=== PATIENT | male | born 1945 | race African-American/Black ===

== ENCOUNTER 2017-02-24 11:23 | Emergency (ER) | payer OTHER, MEDICAID ==
[~2017-02-24] VITALS: Ht 175.3 cm; Wt 61.0 kg
[~2017-02-24 11:23] MED LIST: DIAZ2TAB; IBUP-779
[2017-02-24 11:31] VITALS: BP 186/94
[2017-02-24] MEDS ORDERED: UNKNOWN BP MEDS (11:37)
== END 2017-02-24 12:54 | disposition home or self-care (01) ==
LOC: ER 11:25
DX: K13.79 Other lesions of oral mucosa (principal); M54.5 Low back pain; G89.29 Other chronic pain; I10 Essential (primary) hypertension; M19.90 Unspecified osteoarthritis, unspecified site; Z79.899 Other long term (current) drug therapy
CPT/HCPCS: 99283

== ENCOUNTER 2017-05-07 15:57 | Emergency (ER) | payer OTHER, MEDICAID ==
[~2017-05-07] VITALS: Ht 175.3 cm; Wt 63.0 kg
[~2017-05-07 15:57] MED LIST changes: +UNKNOWN BP MEDS
[2017-05-07] MEDS ORDERED: ACETAMINOPHEN WITH CODEINE 300/30MG TABLET PO ONE (17:00)
[2017-05-07] MEDS ORDERED: AMLODIPINE 5MG TABLET PO ONE (17:15)
[2017-05-07 17:29] LABS: BASOPHILS % 1.1 % (0.0-2.0); EOSINOPHILS % 4.8 % (0.0-5.0); HEMATOCRIT. 36.8 % (42.0-52.0); HEMOGLOBIN. 11.8 g/dL (14.0-18.0); LYMPHOCYTES % 23.6 % (20.0-50.0); MEAN CORPUSCULAR HEMOGLOBIN 23.6 pg (28.0-32.0); MEAN CORPUSCULAR VOLUME 73.8 fL (80.0-94.0); MEAN PLATELET VOLUME 7.7 fl (7.4-10.4); MONOCYTES % 8.3 % (2.0-8.0); NEUTROPHILS % 62.2 % (40.0-76.0); PLATELET 289 x1000/uL (130-400); RED BLOOD CELL COUNT 4.98 mill/uL (4.7-6.1); RED CELL DISTRIBUTION WIDTH 14.8 % (11.6-14.6)
[2017-05-07 17:32] LABS: CARBON DIOXIDE 30 mEq/L (21-32); CHLORIDE 106 mEq/L (98-107)
[2017-05-07 19:20] VITALS: BP 168/89
== END 2017-05-07 19:50 | disposition home or self-care (01) ==
LOC: ER 16:45
DX: I16.0 Hypertensive urgency (principal); M54.9 Dorsalgia, unspecified; G89.29 Other chronic pain; Z76.0 Encounter for issue of repeat prescription; F17.210 Nicotine dependence, cigarettes, uncomplicated; F12.90 Cannabis use, unspecified, uncomplicated; Z88.8 Allergy status to other drugs, medicaments and biological substances; Z79.899 Other long term (current) drug therapy
CPT/HCPCS: 36415; 71010; 80048; 85025; 93005; 99285

== ENCOUNTER 2017-05-25 17:11 | Emergency (ER) | payer OTHER, MEDICAID ==
[~2017-05-25] VITALS: Ht 182.9 cm; Wt 70.0 kg
[2017-05-25] MEDS ORDERED: ACET-3161 PO (17:36)
[2017-05-25] MEDS ORDERED: KETOROLAC 60MG/2ML VIAL IM ONE (20:30)
[2017-05-25 21:02] VITALS: BP 133/81
== END 2017-05-25 21:10 | disposition home or self-care (01) ==
LOC: ER 20:06
DX: G89.29 Other chronic pain (principal); M54.5 Low back pain; I10 Essential (primary) hypertension; F17.200 Nicotine dependence, unspecified, uncomplicated; F12.10 Cannabis abuse, uncomplicated; M19.90 Unspecified osteoarthritis, unspecified site; Z76.0 Encounter for issue of repeat prescription; Z88.8 Allergy status to other drugs, medicaments and biological substances
CPT/HCPCS: 96372; 99283; J1885

== ENCOUNTER 2017-06-20 09:32 | Emergency (ER) | payer OTHER, MEDICAID ==
[~2017-06-20] VITALS: Ht 175.3 cm; Wt 61.0 kg
[~2017-06-20 09:32] MED LIST changes: +ACET-3161 PO
[2017-06-20] MEDS ORDERED: KETOROLAC 60MG/2ML VIAL IM ONE (11:30)
[2017-06-20 11:42] LABS: BASOPHILS % 2.2 % (0.0-2.0); EOSINOPHILS % 6.7 % (0.0-5.0); HEMATOCRIT. 38.9 % (42.0-52.0); HEMOGLOBIN. 12.2 g/dL (14.0-18.0); LYMPHOCYTES % 26.1 % (20.0-50.0); MEAN CORPUSCULAR HEMOGLOBIN 23.6 pg (28.0-32.0); MEAN CORPUSCULAR VOLUME 75.1 fL (80.0-94.0); MEAN PLATELET VOLUME 7.8 fl (7.4-10.4); MONOCYTES % 8.6 % (2.0-8.0); NEUTROPHILS % 56.4 % (40.0-76.0); PLATELET 361 x1000/uL (130-400); RED BLOOD CELL COUNT 5.18 mill/uL (4.7-6.1); RED CELL DISTRIBUTION WIDTH 15.5 % (11.6-14.6)
[2017-06-20 11:57] LABS: CARBON DIOXIDE 27 mEq/L (21-32); CHLORIDE 105 mEq/L (98-107); TROPONIN I < 0.02 ng/mL (0.00-0.04)
[2017-06-20 12:36] VITALS: BP 158/77
== END 2017-06-20 13:55 | disposition home or self-care (01) ==
LOC: ER 09:32
DX: G89.29 Other chronic pain (principal); M54.9 Dorsalgia, unspecified; I10 Essential (primary) hypertension; R42 Dizziness and giddiness; F12.10 Cannabis abuse, uncomplicated; F17.200 Nicotine dependence, unspecified, uncomplicated
CPT/HCPCS: 36415; 80053; 84484; 85025; 93005; 96372; 99285; J1885

== ENCOUNTER 2017-07-31 11:24 | Emergency (ER) | payer OTHER, MEDICAID ==
[~2017-07-31] VITALS: Ht 175.3 cm; Wt 62.0 kg
[2017-07-31 18:00] VITALS: BP 136/84
== END 2017-07-31 18:10 | disposition home or self-care (01) ==
LOC: ER 13:31
DX: Z76.0 Encounter for issue of repeat prescription (principal); J44.9 Chronic obstructive pulmonary disease, unspecified; I10 Essential (primary) hypertension; F12.10 Cannabis abuse, uncomplicated; Z88.8 Allergy status to other drugs, medicaments and biological substances
CPT/HCPCS: 99283

== ENCOUNTER 2017-11-01 09:32 | Emergency (ER) | payer OTHER, MEDICAID ==
[~2017-11-01] VITALS: Ht 175.3 cm; Wt 63.0 kg
[2017-11-01 10:10] VITALS: BP 170/92
== END 2017-11-01 11:24 | disposition home or self-care (01) ==
LOC: ER 10:09
DX: G89.29 Other chronic pain (principal); M54.5 Low back pain; I10 Essential (primary) hypertension; J44.9 Chronic obstructive pulmonary disease, unspecified; M19.90 Unspecified osteoarthritis, unspecified site; F17.200 Nicotine dependence, unspecified, uncomplicated; F12.10 Cannabis abuse, uncomplicated; Z76.0 Encounter for issue of repeat prescription; Z88.8 Allergy status to other drugs, medicaments and biological substances
CPT/HCPCS: 99282

== ENCOUNTER 2017-11-13 09:29 | Emergency (ER) | payer OTHER, MEDICAID ==
[~2017-11-13] VITALS: Ht 167.6 cm; Wt 65.0 kg
[2017-11-13 09:45] VITALS: BP 124/62
== END 2017-11-13 13:20 | disposition home or self-care (01) ==
LOC: ER 10:16
DX: Z76.0 Encounter for issue of repeat prescription (principal); G89.29 Other chronic pain; M54.5 Low back pain
CPT/HCPCS: 99282

== ENCOUNTER 2017-11-27 09:06 | Emergency (ER) | payer OTHER, MEDICAID ==
[~2017-11-27] VITALS: Ht 175.3 cm; Wt 64.0 kg
[2017-11-27] MEDS ORDERED: PREDNISONE 20MG TABLET PO STA (10:51)
[2017-11-27] MEDS ORDERED: IPRATROPIUM BROMIDE (0.02%) 0.5MG/2.5ML NEB HHN STA (10:51)
[2017-11-27] MEDS ORDERED: ALBUTEROL (0.083%) 2.5MG/3ML NEB HHN STA (10:51)
[2017-11-27] MEDS ORDERED: ACETAMINOPHEN 325MG TABLET PO ONE (11:45)
[2017-11-27 12:35] VITALS: BP 146/77
== END 2017-11-27 13:12 | disposition home or self-care (01) ==
LOC: ER 09:06
DX: J45.909 Unspecified asthma, uncomplicated (principal); R05 Cough; M54.5 Low back pain; G89.29 Other chronic pain; I10 Essential (primary) hypertension; F12.10 Cannabis abuse, uncomplicated
CPT/HCPCS: 71045; 99283; J7512; J7611

== ENCOUNTER 2017-12-12 10:14 | Emergency (ER) | payer OTHER, MEDICAID ==
[~2017-12-12] VITALS: Ht 175.3 cm; Wt 64.0 kg
[2017-12-12] MEDS: ACETAMINOPHEN 325MG TABLET PO ONE (13:07)
[2017-12-12 14:26] LABS: BASOPHILS % 1.6 % (0.0-2.0); EOSINOPHILS % 3.7 % (0.0-5.0); HEMATOCRIT. 36.3 % (42.0-52.0); HEMOGLOBIN. 11.1 g/dL (14.0-18.0); LYMPHOCYTES % 23.8 % (20.0-50.0); MEAN CORPUSCULAR HEMOGLOBIN 22.7 pg (28.0-32.0); MEAN CORPUSCULAR VOLUME 74.4 fL (80.0-94.0); MEAN PLATELET VOLUME 7.6 fl (7.4-10.4); MONOCYTES % 8.7 % (2.0-8.0); NEUTROPHILS % 62.2 % (40.0-76.0); PLATELET 313 x1000/uL (130-400); RED BLOOD CELL COUNT 4.88 mill/uL (4.7-6.1); RED CELL DISTRIBUTION WIDTH 15.4 % (11.6-14.6)
[2017-12-12 14:38] LABS: CHLORIDE 105 mEq/L (98-107)
[2017-12-12 14:43] LABS: TROPONIN I < 0.02 ng/mL (0.00-0.04)
[2017-12-12] MEDS: KETOROLAC 60MG/2ML VIAL IM ONE (15:48)
[2017-12-12 16:11] VITALS: BP 130/71
== END 2017-12-12 16:17 | disposition home or self-care (01) ==
LOC: ER 11:01
DX: G89.29 Other chronic pain (principal); M54.5 Low back pain; J44.9 Chronic obstructive pulmonary disease, unspecified; I10 Essential (primary) hypertension; F17.200 Nicotine dependence, unspecified, uncomplicated; F12.10 Cannabis abuse, uncomplicated; Z88.8 Allergy status to other drugs, medicaments and biological substances
CPT/HCPCS: 36415; 71045; 80053; 83690; 84484; 85025; 93005; 96372; 99285; J1885

== ENCOUNTER 2019-05-04 11:02 | Emergency (ER) | payer BC, MEDICAID ==
[~2019-05-04] VITALS: Ht 180.3 cm; Wt 64.0 kg
[2019-05-04] MEDS ORDERED: ACETAMINOPHEN 325MG TABLET PO ONE (11:45)
[2019-05-04] MEDS ORDERED: IBUPROFEN 400MG TABLET PO ONE (11:45)
[2019-05-04 12:15] VITALS: BP 125/68
== END 2019-05-04 12:25 | disposition home or self-care (01) ==
LOC: ER 11:15
DX: R25.2 Cramp and spasm (principal); I10 Essential (primary) hypertension; E11.9 Type 2 diabetes mellitus without complications; J44.9 Chronic obstructive pulmonary disease, unspecified; M19.90 Unspecified osteoarthritis, unspecified site; Z98.890 Other specified postprocedural states
CPT/HCPCS: 99283

== ENCOUNTER 2019-07-25 12:06 | Emergency (ER) | payer BC, MEDICAID ==
[~2019-07-25] VITALS: Ht 175.3 cm; Wt 65.0 kg
[2019-07-25] MEDS ORDERED: CYCLOBENZAPRINE 10MG TABLET PO ONE (14:30)
[2019-07-25 15:24] LABS: BASOPHILS % 1.1 % (0.0-2.0); EOSINOPHILS % 1.8 % (0.0-5.0); HEMOGLOBIN. 13.1 g/dL (14.0-18.0); LYMPHOCYTES % 23.6 % (20.0-50.0); MEAN CORPUSCULAR HEMOGLOBIN 23.3 pg (28.0-32.0); MEAN CORPUSCULAR VOLUME 72.8 fL (80.0-94.0); MEAN PLATELET VOLUME 7.4 fl (7.4-10.4); MONOCYTES % 7.3 % (2.0-8.0); NEUTROPHILS % 66.2 % (40.0-76.0); PLATELET 417 x1000/uL (130-400); RED BLOOD CELL COUNT 5.63 mill/uL (4.7-6.1); RED CELL DISTRIBUTION WIDTH 16.2 % (11.6-14.6)
[2019-07-25 15:26] LABS: CHLORIDE 102 mEq/L (98-107)
[2019-07-25 16:04] LABS: CLARITY URINE CLEAR (CLEAR); COLOR URINE YELLOW (YELLOW); KETONES URINE NEGATIVE (NEGATIVE); LEUKOCYTE ESTERASE URINE 2+ (NEGATIVE); NITRITE URINE NEGATIVE (NEGATIVE); OCCULT BLOOD URINE NEGATIVE (NEGATIVE); PROTEIN URINE NEGATIVE (NEGATIVE); SPECIFIC GRAVITY URINE 1.002 (1.005-1.030); UROBILINOGEN URINE 0.2 E.U./dL (0.2-1.0)
[2019-07-25 16:55] VITALS: BP 141/81
== END 2019-07-25 16:59 | disposition home or self-care (01) ==
LOC: ER 12:06
DX: M54.5 Low back pain (principal); F17.200 Nicotine dependence, unspecified, uncomplicated; J44.9 Chronic obstructive pulmonary disease, unspecified; I10 Essential (primary) hypertension; Z79.899 Other long term (current) drug therapy; Z88.8 Allergy status to other drugs, medicaments and biological substances
CPT/HCPCS: 36415; 81003; 99283; 99406

== ENCOUNTER 2022-09-20 13:03 | Emergency (ER) | payer BC, MEDICAID ==
[~2022-09-20] VITALS: Ht 175.3 cm; Wt 64.0 kg
[2022-09-20] MEDS ORDERED: ACETAMINOPHEN 325MG TABLET PO ONE (16:30)
[2022-09-20] MEDS ORDERED: PANTOPRAZOLE SODIUM 40 MG/VIAL IV ONE (16:45)
[2022-09-20] MEDS ORDERED: CEFTRIAXONE 1 G PREMIX 50 ML IV ONE (16:45)
[2022-09-20] MEDS ORDERED: KETOROLAC 60MG/2ML VIAL IM ONE (17:15)
[2022-09-20] MEDS ORDERED: TAM75 MT (19:02)
[2022-09-20] MEDS ORDERED: OSELTAMIVIR 75MG CAPSULE PO ONE (19:15)
[2022-09-20 19:46] VITALS: BP 142/64
== END 2022-09-20 19:55 | disposition home or self-care (01) ==
LOC: ER 13:03
DX: J10.1 Influenza due to other identified influenza virus with other respiratory manifestations (principal); J44.9 Chronic obstructive pulmonary disease, unspecified; I10 Essential (primary) hypertension; M19.90 Unspecified osteoarthritis, unspecified site; F17.210 Nicotine dependence, cigarettes, uncomplicated; R94.31 Abnormal electrocardiogram [ECG] [EKG]; Z71.6 Tobacco abuse counseling; Z20.822 Contact with and (suspected) exposure to COVID-19; Z88.8 Allergy status to other drugs, medicaments and biological substances
CPT/HCPCS: 71045; 87426; 87804; 93005; 96372; 99285; C9803; J1885